=== PATIENT | male | born 1955 | race Caucasian/White ===

== ENCOUNTER 2018-04-18 20:49 | Emergency (ER) | payer BC ==
[~2018-04-18] VITALS: Ht 188 cm; Wt 117.9 kg
[2018-04-18 22:11] VITALS: BP 132/70
--- NOTE | 2018-04-18 22:11 | NUR ---
Patient discharged to home in stable conditon. Written and verbal after care instructions given. Patient verbalizes understanding of instructions. PT D/C W/ PRESCRIPTION REFILLS. ALL BELONGINGS W/ PT. PT SELF-AMBULATED WITHOUT DIFFICULTY.
== END 2018-04-18 22:12 | disposition home or self-care (01) ==
LOC: ER 20:56
DX: Z76.0 Encounter for issue of repeat prescription (principal); E03.9 Hypothyroidism, unspecified; Z88.0 Allergy status to penicillin
CPT/HCPCS: A4663